=== PATIENT | male | born 1955 | race Two or more races ===

== ENCOUNTER 2021-07-14 13:33 | Emergency (ER) | payer OTHER ==
[2021-07-14 14:17] VITALS: TEMP 98; BMI 27.0
[2021-07-14] MEDS ORDERED: ACETAMINOPHEN 325 MG TABLET (FP) PO ONE (14:25)
[2021-07-14 16:54] VITALS: BP 147/89; PULSE 89
== END 2021-07-14 17:15 | disposition home or self-care (01) ==
LOC: JER 13:33
DX: S76.312A Strain of muscle, fascia and tendon of the posterior muscle group at thigh level, left thigh, initial encounter (principal); W01.0XXA Fall on same level from slipping, tripping and stumbling without subsequent striking against object, initial encounter
CPT/HCPCS: 72170-TC-FY; 73502-TC-LT-FY; 93005; 93010; 99284-25